=== PATIENT | male | born 1995 | race Caucasian/White ===

== ENCOUNTER 2019-10-17 17:56 | Emergency (ER) | payer OTHER ==
[2019-10-17 18:11] VITALS: BP 142/84
--- NOTE | 2019-10-17 18:35 | UC ---
Shoulder Pain HPI - HPI Summary HPI Summary: 24-year-old male comes in with a chief complaint of left shoulder pain. Yesterday while he was skiing he fell and was sliding down the mountain on his left side with his feet down hill and his outstretched left arm uphill when he felt a pop in his left shoulder and immediate pain. He was able continued to ski some and initially range of motion decrease the pain and rest increase the pain. Since then trying to use the shoulder gives him quite a bit of pain. No complaint of any numbness or other injury. - History of Current Complaint Chief Complaint: UCUpperExtremity Stated Complaint: SHOULDER INJURY Time Seen by Provider: 10/17/19 18:14 Pain Intensity: 4 - Allergies/Home Medications Allergies/Adverse Reactions: Allergies Allergy/AdvReac Type Severity Reaction Status Date / Time No Known Allergies Allergy Unverified 10/17/19 18:12 PMH/Surg Hx/FS Hx/Imm Hx Previously Healthy: Yes - Surgical History Surgical History: Yes Surgery Procedure, Year, and Place: nose frax surgery - Family History Known Family History: Positive: Non-Contributory - Social History Alcohol Use: None Substance Use Type: Marijuana Substance Use Comment - Amount & Last Used: POSSIBLE IN THE PAST Smoking Status (MU): Never Smoked Tobacco Review of Systems All Other Systems Reviewed And Are Negative: Yes Constitutional: Positive: Negative Skin: Positive: Negative Eyes: Positive: Negative ENT: Positive: Negative Respiratory: Positive: Negative Gastrointestinal: Positive: Negative Motor: Positive: Other - see hpi Neurovascular: Positive: Negative Musculoskeletal: Positive: Other: - see hpi Neurological: Positive: Negative Psychological: Positive: Negative Is Patient Immunocompromised?: No Physical Exam Triage Information Reviewed: Yes Appearance: Well-Appearing, Well-Nourished, Pain Distress - mild with rom and exam of left shoulder Vital Signs: Initial Vital Signs Temp 98 F 10/17/19 17:59 Pulse 69 10/17/19 17:59 Resp 16 10/17/19 17:59 BP 142/84 10/17/19 17:59 Pulse Ox 100 10/17/19 17:59 Vital Signs Reviewed: Yes Eye Exam: Normal Eyes: Positive: Conjunctiva Clear Neck: Positive: Supple, Nontender Respiratory: Positive: No respiratory distress Musculoskeletal: Positive: Other: - Left shoulder is tender to palpation in the joint. Clavicle is nontender to palpation. Fingers wrist elbows have full range of motion full-strength normal sensation normal capillary refill. Left shoulder range of motion is severely limited secondary to pain. Right shoulder range of motion is normal. Neurological: Positive: Alert Psychological: Positive: Age Appropriate Behavior Skin Exam: Normal Shoulder Course/Dx - Course Course Of Treatment: Discussed the x-rays with the patient. I do not see any fracture or dislocation. Radiologist reading is pending. The plan is ice and anti- inflammatories and maintaining range of motion and follow-up with sports medicine or orthopedics. I demonstrated range of motion exercises to the patient. Patient was placed a sling by nursing patient neurovascularly intact after the placement of the sling. Did let the patient know that he needed to take his arm out of the sling multiple times a day to perform range of motion. - Differential Dx/Diagnosis Provider Diagnosis: Left shoulder pain Discharge ED - Sign-Out/Discharge Documenting (check all that apply): Patient Departure All imaging exams completed and their final reports reviewed: No - Discharge Plan Condition: Stable Disposition: HOME Patient Education Materials: Shoulder Pain (ED) Referrals: [facility] [Provider Group] Nigel Duckworth MD [Medical Doctor] - Additional Instructions: FOLLOW UP WITH SPORTS MEDICINE OR ORTHOPEDICS. GET REEVALUATED SOONER IF NOT IMPROVED OR WORSE OR ANY QUESTIONS OR CONCERNS. Wear the sling as needed. To avoid frozen shoulder perform the range of motion exercises we discussed multiple times a day. THE RADIOLOGIST READING FOR YOUR X-RAY WILL BE DONE TOMORROW. IF THERE IS ANY CHANGE IN THE X-RAY, WE WILL CALL YOU WITH THE FINAL RESULTS. IF THE RADIOLOGIST SEES A FRACTURE, FOLLOW UP WITH ORTHOPEDICS. - Billing Disposition and Condition Condition: STABLE Disposition: Home
--- NOTE | 2019-10-18 15:36 | UC ---
- Progress Note Progress Note: wet read correct Course/Dx - Diagnoses Provider Diagnoses: Left shoulder pain Discharge ED - Sign-Out/Discharge Documenting (check all that apply): Post-Discharge Follow Up All imaging exams completed and their final reports reviewed: Yes - Discharge Plan Condition: Stable Disposition: HOME Patient Education Materials: Shoulder Pain (ED) Referrals: [facility] [Provider Group] Nigel Duckworth MD [Medical Doctor] - Additional Instructions: FOLLOW UP WITH SPORTS MEDICINE OR ORTHOPEDICS. GET REEVALUATED SOONER IF NOT IMPROVED OR WORSE OR ANY QUESTIONS OR CONCERNS. Wear the sling as needed. To avoid frozen shoulder perform the range of motion exercises we discussed multiple times a day. THE RADIOLOGIST READING FOR YOUR X-RAY WILL BE DONE TOMORROW. IF THERE IS ANY CHANGE IN THE X-RAY, WE WILL CALL YOU WITH THE FINAL RESULTS. IF THE RADIOLOGIST SEES A FRACTURE, FOLLOW UP WITH ORTHOPEDICS. - Billing Disposition and Condition Condition: STABLE Disposition: Home
== END 2019-10-17 18:48 | disposition home or self-care (01) ==
LOC: UCEAST 17:56
DX: M25.512 Pain in left shoulder (principal)
CPT/HCPCS: 99212; G0463